=== PATIENT | male | born 2000 | race Caucasian/White ===

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

== ENCOUNTER 2025-02-06 15:55 | Emergency (ER) | payer OTHER, SELFPAY ==
[2025-02-06 16:09] VITALS: BP 118/74; PULSE 54; RESP 20; TEMP 37; O2SAT 100
--- NOTE | 2025-02-06 16:51 | ED.ABDPAIN ---
HPI - Abdominal Pain General Chief Complaint: Abdominal Pain Stated Complaint: Chest Wall /Abdominal Pain Patient presents to the [facility] with complaints of upper abdominal pain that was present upon waking this morning and the pain moves up it to chest. Patient noted he has had symptoms like this before and taken Tums in the past. Patient does also report feeling fullness in abdomen over the last several days but had a normal bowel movement today and now does not feel this sensation. No other medications attempted for symptoms. Patient does report he works at [employer] and was unable to go to work today due to symptoms but does eat cheese burgers and food from [employer] frequently. Denies vomiting, palpitations, heart fluttering, headache, dizziness, fever, chills, body aches, or diarrhea. Related Data Home Medications ?Medication ?Instructions ?Recorded ?Confirmed ?Last Taken ?Type levetiracetam 750 mg tablet mg PO 02/06/25 Unknown History Allergies Allergy/AdvReac Type Severity Reaction Status Date / Time No Known Allergies Allergy Verified 02/06/25 16:41 Review of Systems Constitutional: Constitutional: Reports as per HPI, Denies chills, Denies fatigue, Denies fever(s) and Denies weakness Eyes: Eyes: Reports no additional eye complaints ENT: Reports as per HPI and Denies sore throat Cardiovascular: Cardiovascular: Reports as per HPI, Denies chest pain, Denies rapid heart rate, Denies radiating jaw, neck or arm pain and Denies slow heart rate Respiratory: Respiratory: Reports no additional respiratory complaints Gastrointestinal: Gastrointestinal: Reports as per HPI, Reports abdominal pain, Reports bloating, Reports constipation, Reports heartburn, Denies diarrhea, Denies nausea and Denies vomiting Genitourinary: Genitourinary: Reports no additional male genitourinary complaints Musculoskeletal: Musculoskeletal: Reports no additional musculoskeletal complaints Integumentary/Breasts: Skin/Breast: Reports system reviewed and no additional complaints, except as docu Neurologic: Reports system reviewed and no additional complaints, except as documented Psychiatric: Psychiatric: Reports no additional psychiatric complaints Endocrine: Endocrine: Reports no additional endocrine complaints Hematologic/Lymphatic: Hematologic/Lymphatic: Reports no additional hematologic/lymphatic complaints Allergic/Immunologic: Allergic/Immunologic: Reports no additional allergic/immunologic complaints Exam Const: General: healthy appearing and no acute distress Nutritional Appearance: well nourished Orientation/consciousness: patient oriented x3 Limitations: no limitations HENMT: Mouth: Yes Normal oral and palatal mucosa present, Yes lip normal and Yes moist mucous membranes Throat: posterior oropharynx normal Chest: Chest palpation & inspection: normal inspection of the chest, no tenderness and No Pacemaker present Resp: Effort & Inspection: normal respiratory effort Auscultation: clear to auscultation bilaterally Cardio: Rate: regular rate Rhythm: regular rhythm GI: Inspection: non-distended GI Palp: Yes Soft to palpation, Yes Tenderness to palpation present (GI) (epigastric ), No Guarding due to palpation present (GI), No Rigid due to palpation, No Hernia present and No Rebound tenderness present Auscultation: normal bowel sounds Skin: General skin exam: normal color Rashes: no rashes Wounds: no wounds Neuro: General: patient oriented x3 and moves all extremities Speech: normal speech Gait exam (Neuro): Normal gait present Extrem: General: no clubbing, cyanosis or edema and no pedal edema Psych: Mental Status: mental status grossly normal Affect: normal affect Attitude: cooperative Course Course Level of Care: Express Care Visit Vital Signs Vital signs: Vital Signs Temperature 98.6 F 02/06/25 16:09 Pulse Rate 54 L 02/06/25 16:09 Respiratory Rate 20 02/06/25 16:09 Blood Pressure 118/74 02/06/25 16:09 Pulse Oximetry 100 02/06/25 16:09 Oxygen Delivery Room Air 02/06/25 16:09 Temperature 98.6 F 02/06/25 16:09 Pulse Rate 54 L 02/06/25 16:09 Respiratory Rate 20 02/06/25 16:09 Blood Pressure 118/74 02/06/25 16:09 Pulse Oximetry 100 02/06/25 16:09 Oxygen Delivery Room Air 02/06/25 16:09 MDM - Abdominal Pain MDM Narrative Medical decision making narrative: Given symptoms likely gastritis with esophagitis. No vomiting or blood in vomit. Educated patient on several signs and symptoms that would need ER evaluation. The patient was evaluated by myself in the express care. History is obtained from patient who is an independent historian and physical exam was performed. Available medical records were reviewed at this time. Exam findings show no acute concerns or changes; patient is non-toxic appearing and is in no distress. Patient is appropriate for outpatient treatment and follow-up. I have evaluated and discussed social determinants of health with the patient that could potentially impact subsequent diagnosis and treatment plans. Differential diagnosis and treatment plan were discussed with the patient. Patient agrees with discussion and after shared medical decision making agrees with plan of care. All questions were answered to the patient's satisfaction. Differential Diagnosis Differential diagnosis: Likely abdominal pain, constipation, gastroenteritis, pancreatitis and small bowel obstruction Medical Records Attestation: I reviewed the patient's medical records. Discharge Plan Discharge Clinical Impression: Gastritis Patient Disposition: Home Condition: Stable Instructions: Antibiotic Form, Diet for Stomach Ulcers and Gastritis (ED), GERD (Gastroesophageal Reflux Disease) (ED) Additional Instructions: Take the daily medication 1st thing in the morning on an empty stomach. Take this for at least 2 weeks consistently. May also use 20 mg Pepcid as needed for symptoms or related/Tums as needed. Insure to look through the diet changes and stay away from fried food, fatty food, greasy foods, carbonated beverages, alcohol if you began to have significant abdominal pain or chest pain go to the emergency room for further evaluation of symptom Patient Language: Thai Prescriptions: New omeprazole 20 mg capsule,delayed release(DR/EC) 20 mg PO DAILY Qty: 28 0RF Rx Instructions: take first thing in the morning on empty stomach No Action levetiracetam 750 mg tablet PO Follow-up/Referrals: PHYSICIAN,[employer] [employer] [Primary Care Provider, Internal Medicine] Stand Alone Forms: Work/School Release IP Time of Disposition: 16:54
== END 2025-02-06 16:59 | disposition home or self-care (01) ==
PROVIDERS: Emergency Provider Nurse Practitioner Family
DX: K29.70 Gastritis, unspecified, without bleeding (principal)
CPT/HCPCS: 99203; G0463